=== PATIENT | female | born 1950 | race Caucasian/White ===

== ENCOUNTER → 2022-05-15 | Outpatient (REF) | payer SELFPAY ==
[2022-05-15 08:20] LABS: Hematocrit 30.3 % (37-47); Hemoglobin 9.2 g/dL (12.0-15.0); Mean Corp Hgb Conc 30.4 g/dL (32-36); Mean Corpuscular Hgb 30.5 pg (27.0-32.0); Mean Corpuscular Volume 100.3 fL (81-99); Mean Platelet Vol. 11.3 fl (6.2-12.0); POSITIVE MORPHOLOGY YES; Platelet Count 194 K/mm3 (150-450); RBC Distribution Width CV 22.5 % (11.6-14.6); RBC Distribution Width SD 81.8 fl (35.1-43.9); Red Blood Count 3.02 M/mm3 (4.2-5.4); White Blood Count 8.9 K/mm3 (4.4-11.0)
[2022-05-15 08:31] LABS: ALB/GLOB Ratio 0.8 RATIO (0.9-2.4); AST(SGOT) 17 U/L (15-37); Alanine Aminotransfer ALT/SGPT 39 U/L (13-56); Albumin, Serum 2.7 g/dL (3.2-5.0); Alkaline Phosphatase 122 U/L (45-117); Anion Gap 10 (5-15); BUN 41 mg/dL (7-18); BUN/Creat Ratio 7.9 RATIO (10-20); Calcium,Total 9.3 mg/dL (8.5-10.1); Chloride 92 mmol/L (98-107); Cholesterol 87 mg/dL (200); Creatinine, Serum 5.16 mg/dL (0.55-1.02); EST Glomerular Filtration Rate 9 mL/min (>60); Est Glom Filt Rate - Afr Amer 11 mL/min (>60); Globulin 3.5 g/dL (2.2-4.2); Glucose 140 mg/dL (74-106); High Density Lipoprotein 39 mg/dL; Potassium 4.4 mmol/L (3.5-5.1); Protein, Total 6.2 g/dL (6.4-8.2); Sodium Level 132 mmol/L (136-145); Triglycerides 86 mg/dL; Very Low Density Lipoprotein 17 mg/dL (5-40)
[2022-05-15 08:37] LABS: Hemoglobin A1c 5.4 % (3.8-5.6)
[2022-05-15 08:49] LABS: Scan Indicated on CBC? Y/N YES- FLAGS NOTED
== END | disposition home or self-care (01) ==
LOC: OLS.SW1020 04:00
PROVIDERS: Visit Provider Family Medicine
DX: E11.9 Type 2 diabetes mellitus without complications (principal); N17.9 Acute kidney failure, unspecified
CPT/HCPCS: 36415; 80053; 80061; 83036; 85027

== ENCOUNTER → 2022-05-22 | Outpatient (REF) | payer SELFPAY ==
[2022-05-22 08:58] LABS: Hematocrit 30.9 % (37-47); Hemoglobin 9.2 g/dL (12.0-15.0); Mean Corp Hgb Conc 29.8 g/dL (32-36); Mean Corpuscular Hgb 29.3 pg (27.0-32.0); Mean Corpuscular Volume 98.4 fL (81-99); Mean Platelet Vol. 10.8 fl (6.2-12.0); POSITIVE MORPHOLOGY YES; Platelet Count 226 K/mm3 (150-450); RBC Distribution Width CV 20.9 % (11.6-14.6); RBC Distribution Width SD 75.1 fl (35.1-43.9); Red Blood Count 3.14 M/mm3 (4.2-5.4); White Blood Count 7.1 K/mm3 (4.4-11.0)
[2022-05-22 09:14] LABS: ALB/GLOB Ratio 0.8 RATIO (0.9-2.4); AST(SGOT) 15 U/L (15-37); Alanine Aminotransfer ALT/SGPT 25 U/L (13-56); Albumin, Serum 3.1 g/dL (3.2-5.0); Alkaline Phosphatase 109 U/L (45-117); Anion Gap 14 (5-15); BUN 42 mg/dL (7-18); BUN/Creat Ratio 8.7 RATIO (10-20); Calcium,Total 9.6 mg/dL (8.5-10.1); Chloride 90 mmol/L (98-107); Creatinine, Serum 4.83 mg/dL (0.55-1.02); EST Glomerular Filtration Rate 9 mL/min (>60); Est Glom Filt Rate - Afr Amer 11 mL/min (>60); Globulin 3.7 g/dL (2.2-4.2); Glucose 85 mg/dL (74-106); Potassium 4.4 mmol/L (3.5-5.1); Protein, Total 6.8 g/dL (6.4-8.2); Sodium Level 132 mmol/L (136-145)
[2022-05-22 09:19] LABS: Scan Indicated on CBC? Y/N YES- FLAGS NOTED
[2022-05-22 10:31] LABS: Differential Comment SCANNED
== END | disposition home or self-care (01) ==
LOC: OLS.SW500 04:00
PROVIDERS: Visit Provider Family Medicine
DX: N17.9 Acute kidney failure, unspecified (principal)
CPT/HCPCS: 36415; 80053; 85027

== ENCOUNTER → 2022-06-08 | Outpatient (REF) | payer SELFPAY | END | disposition home or self-care (01) | LOC: OLS.SW1020 05:00 | PROVIDERS: Visit Provider Family Medicine | DX: M86.9 Osteomyelitis, unspecified (principal); E11.22 Type 2 diabetes mellitus with diabetic chronic kidney disease; N18.6 End stage renal disease | CPT/HCPCS: 36415; 84134 ==

== ENCOUNTER 2022-07-06 17:41 | Emergency (ER) | payer MEDICARE, BC, SELFPAY ==
[2022-07-06 17:42] VITALS: BP 93/58; PULSE 80; RESP 16; TEMP 36.7; O2SAT 93; BMI 29.0
--- NOTE | 2022-07-06 18:08 | EX.ED.DYSGE1 ---
HPI History of Present Illness Chief Complaint: Wound Informant: patient and SNF Narrative Narrative: 71-year-old female has had prior BKA's most recently this spring on the right. She states she developed an infection. Last Saturday Dr. Clarke at [facility] performed a vascular surgery. She states that her right stump was healing well until she started noticing some drainage yesterday. Today it is more painful and she notes further drainage from the medial aspect of the stump. She states she is still receiving heparin shots but is not on an antibiotic. She recently (06/26/2022) tested positive for C. difficile. I do not know what she was treated with or for how long. She denies any fevers. [facility] Medical History (Updated 07/06/22 @ 19:[address] Blayne Horowitz DO) Below knee amputation Peripheral vascular disease Allergy/AdvReac Type Severity Reaction Status Date / Time lorazepam [From Ativan] Allergy Other Verified 07/06/22 17:42 morphine Allergy Other Verified 07/06/22 17:42 Social History (Updated 07/06/22 @ 18:[address] Blayne Horowitz DO) current gender identity: female substance use type: does not use ROS ROS ED Constitutional Constitutional ED: Denies chills or weight loss Eyes Eyes: Denies blurry vision, change in vision or diplopia ENT ENT ED: Denies ear pain, rhinorrhea or sore throat Cardiovascular Cardiovascular: Denies chest pain, orthopnea, palpitations or racing heartbeat Respiratory/Chest Respiratory/Chest: Denies cough, dyspnea or orthopnea Gastrointestinal Gastrointestinal: Denies abdominal pain, diarrhea, nausea or vomiting Genitourinary Genitourinary ED: Denies dysuria, hematuria or urinary frequency Musculoskeletal Musculoskeletal: Reports other Details: Right stump pain and drainage ; Denies arthralgias or myalgias Integumentary Denies abscess or rash Neurologic Neurologic: Denies headache(s) or weakness Psychiatric Psychiatric: Denies anxiety, depression, suicidal ideation or suicidal thoughts Endocrine Endocrinology: Denies polydipsia, polyphagia or polyuria Allergic/Immunologic Allergic/Immunologic ED: Denies mouth swelling, tongue swelling or urticaria EXAM Physical Exam Const Vital Signs: 07/06/22 17:42 Temperature 98.1 F Temperature Source Oral Pulse Rate 80 Respiratory Rate 16 Blood Pressure 93/58 L Blood Pressure Mean 69 Pulse Ox 93 Oxygen Delivery Method Room Air Positive well nourished and well developed General Appearance ED: well developed HEENT Reports normocephalic, head/scalp atraumatic and moist mucous membranes Eyes PERRL and EOMs intact bilaterally Neck no lymphadenopathy, supple and no JVD Resp normal respiratory effort and clear to auscultation bilaterally Cardio regular rate, regular rhythm and no murmurs GI normal to inspection, nondistended, normoactive bowel sounds and non-tender Palpation: soft Back/Spine no CVA tenderness and normal ROM Extremity Extremity Narrative: Right BKA stump has surgical sutures in place. The medial aspect of the wound demonstrates some purulent drainage. There is some edema and mild erythema. I do not appreciate lymphangitic streaking. General Extremety ED: Negative for edema General Extremity: Negative for edema Neuro oriented x3 and CN's II-XII intact bilaterally Sensorium / Orientation: alert Motor Exam: strength 5/5 throughout Psych mental status grossly normal Mood & Affect: Negative for depressed or tearful Skin no rashes or lesions noted MDM MDM MDM Narrative Medical decision making narrative: Patient's white count is 12.2 with a platelet count of 190 and a hemoglobin of 6.7. Creatinine 4.59. Lactic acid is elevated at 2.6. Blood cultures were obtained and wound culture. I interpretation of the plain films is no obvious osteomyelitis or gas formation. Patient received Zosyn and vancomycin. She also is currently being treated for C. difficile colitis. COVID test is negative I spoke with [facility] transfer line. Lab Data Attestation: I reviewed the patient's lab results. Labs: Laboratory Results - last 24 hr 07/06/22 07/06/22 07/06/22 18:15 18:15 18:15 WBC 12.2 H RBC 2.28 L Hgb 6.7 L Hct 22.0 L MCV 96.5 MCH 29.4 MCHC 30.5 L RDW Std Deviation 65.4 H RDW Coeff of Ashlyn 18.6 H Plt Count 190 MPV 10.8 Immature Gran % (Auto) 0.600 Neut % (Auto) 90.1 H Lymph % (Auto) 3.9 L [place] % (Auto) 4.0 Eos % (Auto) 1.1 Baso % (Auto) 0.3 Absolute Neuts (auto) 11.0 H Absolute Lymphs (auto) 0.48 L Band Neutrophils % 10.96 H Other Cells % 10.96 Nucleated RBC % 0 Dohle Bodies Not Reportable Polychromasia 1+ Anisocytosis 1+ Ovalocytes 1+ PT 16.6 H INR 1.4 APTT 35.9 Sodium 134 L Potassium 4.1 Chloride 93 L Carbon Dioxide 28.0 Anion Gap 13 BUN 43 H Creatinine 4.59 H Estim Creat Clear Calc 10.68 Est GFR (MDRD) Af Amer 12 L Est GFR (MDRD) Non-Af 10 L BUN/Creatinine Ratio 9.4 L Glucose 190 H Lactic Acid Calcium 9.5 Total Bilirubin 0.50 AST 12 L ALT 20 Alkaline Phosphatase 105 Total Protein 6.4 Albumin 2.7 L Globulin 3.7 Albumin/Globulin Ratio 0.7 L 07/06/22 18:15 WBC RBC Hgb Hct MCV MCH MCHC RDW Std Deviation RDW Coeff of Ashlyn Plt Count MPV Immature Gran % (Auto) Neut % (Auto) Lymph % (Auto) [place] % (Auto) Eos % (Auto) Baso % (Auto) Absolute Neuts (auto) Absolute Lymphs (auto) Band Neutrophils % Other Cells % Nucleated RBC % Dohle Bodies Polychromasia Anisocytosis Ovalocytes PT INR APTT Sodium Potassium Chloride Carbon Dioxide Anion Gap BUN Creatinine Estim Creat Clear Calc Est GFR (MDRD) Af Amer Est GFR (MDRD) Non-Af BUN/Creatinine Ratio Glucose Lactic Acid 2.6 H* Calcium Total Bilirubin AST ALT Alkaline Phosphatase Total Protein Albumin Globulin Albumin/Globulin Ratio Radiography Diagnostic Testing: Clinical Impression(s) from Imaging Studies Tibia/Fibula X-Ray 07/06/22 18:45 IMPRESSION: Status post BKA without evidence of acute abnormality. Electronically Signed: Jose Luis Anderson DO at 19:12 EDT Reading Location ID and State: [address] [place] [address] Tel [phone], Service support , Discharge Plan Triage Chief Complaint: Wound Other Complaint: Lower Extremity Injury ED Provider: Blayne Hoorwitz Dx/Rx/DC Orders Clinical Impression: Peripheral vascular disease, Post-operative infection, C. difficile diarrhea Primary Care Provider: Jesús Wang Referrals: Jesús Wang MD [Primary Care Provider] - Disposition Disposition: Acute Care Hospital Discharge Location: [facility]
[2022-07-06 18:43] LABS: Absolute Lymphocyte Count 0.48 X10^3/uL (0.83-4.51); Basophil# 0.04 X10^3/uL; Basophil% 0.3 % (0-1); Eosinophil# 0.13 X10^3/uL; Eosinophils% 1.1 % (0-5); Hemoglobin 6.7 g/dL (12.0-15.0); Lymphocyte # 0.48 X10^3/ul (0.83-4.51); Lymphocyte % 3.9 % (19-41); Mean Corp Hgb Conc 30.5 g/dL (32-36); Mean Corpuscular Hgb 29.4 pg (27.0-32.0); Mean Corpuscular Volume 96.5 fL (81-99); Mean Platelet Vol. 10.8 fl (6.2-12.0); Monocyte# 0.49 X10^3/uL; NRBC Flagged by Analyzer 0 % (0-5); Neutrophil # 10.96 X10^3/uL (2.7-7.7); Neutrophil % 90.1 % (47-70); POSITIVE DIFFERENTIAL YES; POSITIVE MORPHOLOGY YES; Platelet Count 190 K/mm3 (150-450); RBC Distribution Width CV 18.6 % (11.6-14.6); RBC Distribution Width SD 65.4 fl (35.1-43.9); Red Blood Count 2.28 M/mm3 (4.2-5.4); White Blood Count 12.2 K/mm3 (4.4-11.0)
--- NOTE | 2022-07-06 18:45 | RAD_ITS ---
STUDY: X-RAY - RIGHT TIBIA AND FIBULA REASON FOR EXAM: Female, 71 years old. Infection. Increased pain and drainage. History of surgery at outside facility. TECHNIQUE: 2 view(s) of the tibia and fibula were obtained. COMPARISON: None. FINDINGS: Normal visualized distal femur. There is a BKA. The visualized portions of the tibia and fibula appear unremarkable. There is no evidence of periosteal reaction. There is a single small lucency near the amputation site in the medial aspect of the tibia. Calcifications are seen in the popliteal and calf vessels. The soft tissue structures are otherwise unremarkable. RAD/Tibia & Fibula 2 Views IMPRESSION: Status post BKA without evidence of acute abnormality. Electronically Signed: Jose Luis Anderson DO at 19:12 EDT ,
[2022-07-06 18:52] LABS: Differential Indicated SCAN CRITERIA MET
[2022-07-06 19:01] LABS: International Normalized Ratio 1.4; Prothrombin Time (Protime)PT. 16.6 SECONDS (11.7-14.9)
[2022-07-06 19:02] LABS: Partial Thromboplast Time 35.9 Seconds (24.1-36.2)
[2022-07-06 19:04] LABS: ALB/GLOB Ratio 0.7 RATIO (0.9-2.4); AST(SGOT) 12 U/L (15-37); Alanine Aminotransfer ALT/SGPT 20 U/L (13-56); Albumin, Serum 2.7 g/dL (3.2-5.0); Alkaline Phosphatase 105 U/L (45-117); Anion Gap 13 (5-15); BUN 43 mg/dL (7-18); BUN/Creat Ratio 9.4 RATIO (10-20); Calcium,Total 9.5 mg/dL (8.5-10.1); Chloride 93 mmol/L (98-107); Creatinine, Serum 4.59 mg/dL (0.55-1.02); EST Glomerular Filtration Rate 10 mL/min (>60); Est Glom Filt Rate - Afr Amer 12 mL/min (>60); Estimated Creatinine Clearance 10.68 ml/min; Globulin 3.7 g/dL (2.2-4.2); Glucose 190 mg/dL (74-106); Potassium 4.1 mmol/L (3.5-5.1); Protein, Total 6.4 g/dL (6.4-8.2); Sodium Level 134 mmol/L (136-145)
[2022-07-06 19:15] LABS: Lactic Acid 2.6 mmol/L (0.4-1.9)
[2022-07-06 19:18] LABS: Anisocytosis 1+; Polychromasia 1+
[2022-07-06 19:21] LABS: Ovalocyte 1+
--- NOTE | 2022-07-06 19:24 | ED.RN ---
IV attempt x3 unsuccessful. Will speak w/conveyor line battery charger.
[2022-07-06 19:26] LABS: Neutrophil-Band 10.96 % (0-5); Other WBC Type 10.96 %
[2022-07-06] MEDS: HYDROmorphone 1 MG/ML Syringe 0.5 MG IV (21:11)
[2022-07-06 21:24] VITALS: BP 116/48; PULSE 76; RESP 21
[2022-07-06 22:36] VITALS: BP 111/53; PULSE 80; RESP 18; TEMP 36.9; O2SAT 92
[2022-07-06 22:39] LABS: Reflex Lactate? Y
[2022-07-06 23:31] LABS: Lactic Acid 1.2 mmol/L (0.4-1.9)
[2022-07-07 00:02] VITALS: BP 114/52; PULSE 71; RESP 16; TEMP 36.8; O2SAT 94
== END 2022-07-07 00:53 | disposition short-term general hospital (02) ==
PROVIDERS: Emergency Provider Emergency Medicine; PCP Family Medicine; Visit Provider Emergency Medicine
DX: I73.9 Peripheral vascular disease, unspecified (principal); T87.43 Infection of amputation stump, right lower extremity; A04.72 Enterocolitis due to Clostridium difficile, not specified as recurrent; Z20.822 Contact with and (suspected) exposure to COVID-19
CPT/HCPCS: 73590; 80053; 83605; 85025; 85610; 85730; 87040; 87070; 87077; 87186; 87205; 87811; 96365; 96375; 99285; A4216